=== PATIENT | female | born 1965 | race Caucasian/White ===

== ENCOUNTER 2016-08-04 17:28 | Emergency (ER) | payer OTHER ==
[~2016-08-04] VITALS: Ht 160 cm; Wt 70.0 kg
[2016-08-04 17:31] VITALS: Ht 160 cm; Wt 70.0 kg
[2016-08-04] MEDS ORDERED: IBUP-1542 PO (17:45)
[2016-08-04] MEDS ORDERED: KETO5DRO58 OP (17:45)
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
== END 2016-08-04 17:46 | disposition home or self-care (01) ==
LOC: FTE 17:28 → E/R 17:46
DX: H11.31 Conjunctival hemorrhage, right eye (principal); V49.40XA Driver injured in collision with unspecified motor vehicles in traffic accident, initial encounter
CPT/HCPCS: 99283